=== PATIENT | female | born 1970 | race African-American/Black ===

== ENCOUNTER → 2018-11-27 | Outpatient (CLI) | payer OTHER | LOC: NUC 08:17 | DX: R07.9 Chest pain, unspecified (principal); R06.02 Shortness of breath; I10 Essential (primary) hypertension; I48.91 Unspecified atrial fibrillation; Z82.49 Family history of ischemic heart disease and other diseases of the circulatory system; Z79.899 Other long term (current) drug therapy; Z88.8 Allergy status to other drugs, medicaments and biological substances ==